=== PATIENT | male | born 1955 | race African-American/Black ===

== ENCOUNTER 2021-08-21 12:10 | Inpatient (IN) ==
[2021-08-21 15:55] LABS: Alanine Aminotransferase 20 U/L (16-61); Albumin 3.7 G/DL (3.4-5.0); Alkaline Phosphatase 65 U/L (45-117); Aspartate Amino Transferase 10 U/L (0-37); Bilirubin,Total < 0.39 MG/DL (0.20-1.00); Blood Urea Nitrogen 23 MG/DL (7-18); Calcium 8.4 MG/DL (8.5-10.1); Carbon Dioxide 28 MMOL/L (21-32); Estimated Glom Filtration Rate 41 ML/MIN; Glucose 114 MG/DL (74-106); Osmolality,Calculated 283.4 MOS/KG (273-304); Potassium 4.1 MMOL/L (3.5-5.1); Sodium 140 MMOL/L (136-145); Total Protein 8.3 G/DL (6.4-8.2)
[2021-08-21 17:34] LABS: ABG Base Excess -0.7 MMOL/L (-2.5-2.5); ABG HCO3 23.8 MMOL/L (20-26); ABG PCO2 41.4 MM HG (35-48); ABG PH 7.379 (7.35-7.45); ABG PO2 93.4 MM HG (80-95); ABG TCO2 21.2 MMOL/L (23-27); Allen Test Positive; Pt O2 Delivery Device Room Air
[2021-08-21 17:49] LABS: Basophils # 0.1 10*3/uL (0.0-0.2); Eosinophils # 0.2 10*3/uL (0.0-0.87); Eosinophils % 3.5 % (0.00-10.9); Hematocrit 39.8 VOL% (42.0-52.0); Hemoglobin 13.9 GM/DL (14.0-18.0); Immature Granulocytes % 0.2 %; Immature Granulocytes Absolute 0.01 #; Lymphocytes % 31.8 % (21.2-54.2); Mean Corpuscular HGB Conc 34.9 GM/DL (32-36); Mean Corpuscular Volume 80.4 FL (87-102); Monocytes % 7.7 % (1.7-12.7); Neutrophils % 55.8 % (38.7-73.9); Platelet Count 277 T/CUMM (130-400); Red Blood Count 4.95 MC/CUMM (3.8-5.5); White Blood Count 6.2 T/CUMM (4-12)
[2021-08-21] MEDS: CHLORHEXIDINE 0.12% ORAL RINSE 60 ML BOTTLE SWISH/SPIT SCH (21:17)
[2021-08-21] MEDS: CHLORHEXIDINE 4% SOLN 118 ML BOTTLE TOP SCH (21:17)
[2021-08-22] MEDS ORDERED: VANCOMYCIN 1,000 MG VIAL ONE (04:16)
[2021-08-22] MEDS ORDERED: CEFUROXIME INJ 1,500 MG in SODIUM CHLORIDE 0.9% 100 ML IV ONE (05:00)
[2021-08-22] MEDS: SODIUM CHLORIDE 0.9% 1,000 ML IV SCH ×3 (05:42→13:57)
[2021-08-22] MEDS ORDERED: FAMOTIDINE 20 MG TABLET PO ONE (05:45)
[2021-08-22] MEDS ORDERED: DIAZEPAM 5 MG TABLET PO ONE (05:45)
[2021-08-22] MEDS ORDERED: SODIUM CHLORIDE 0.9% 1,000 ML IV ONE ×2 (05:53→09:48)
[2021-08-22] MEDS ORDERED: LACTATED RINGERS 1,000 ML IV ONE (05:53)
[2021-08-22] MEDS ORDERED: SODIUM CHLORIDE 0.9% 250 ML IV ONE (05:53)
[2021-08-22] MEDS ORDERED: HEPARIN/NACL 0.9% 2 UNITS/ML 1,000 UNIT/500 ML BAG IV ONE (05:53)
[2021-08-22] MEDS ORDERED: MINERAL OIL/PETROLATUM OPH OINT 3.5 GM TUBE ONE (05:53)
[2021-08-22] MEDS ORDERED: AMINOCAPROIC ACID 5,000 MG/20 ML VIAL ONE (05:53)
[2021-08-22] MEDS ORDERED: LIDOCAINE 2% 5 ML VIAL ONE ×2 (05:58→09:42)
[2021-08-22] MEDS ORDERED: VECURONIUM 10 MG VIAL IV ONE ×3 (05:58→09:10)
[2021-08-22] MEDS ORDERED: CALCIUM CHLORIDE 1,000 MG/10 ML VIAL IV ONE ×4 (05:58→10:06)
[2021-08-22] MEDS ORDERED: SEVOFLURANE 1 UNIT/15 MINUTE INH ONE (05:58)
[2021-08-22] MEDS ORDERED: MIDAZOLAM 10 MG/2 ML VIAL ONE ×4 (05:59→09:11)
[2021-08-22] MEDS ORDERED: SUFentanil 250 MCG/5 ML AMP ONE (05:59)
[2021-08-22 07:28] LABS: ABG Base Excess -1.8 MMOL/L (-2.5-2.5); ABG HCO3 22.9 MMOL/L (20-26); ABG Oxygen Saturation 99.7 % (95-100); ABG PCO2 43.8 MM HG (35-48); ABG PH 7.346 (7.35-7.45); ABG TCO2 21.3 MMOL/L (23-27); Glucose Heart Surgery 98 MG/DL (74-106); Hematocrit Heart Surgery 37.1 PERCENT (42-52); Hemoglobin Heart Surgery 12.1 G/DL (14.0-18.0); Ionized Calcium Arterial 1.14 MMOL/L (1.21-1.46); PCO2 Patient Temp Arterial 43.8 MMHG; PH Patient Temp Arterial 7.346; Patient Temperature 37 CELCIUS; Potassium Heart/CVR 4.6 MMOL/L (3.5-5.1); Sodium Heart/CVR 141 MMOL/L (135-145)
[2021-08-22 07:41] LABS: Bilirubin,Urine Negative (Negative); Blood, Urine Negative (Negative); Glucose,Urine (UA) Negative (Negative); Hyaline Casts,Urine 8 /LPF (0-3); Ketones,Urine Negative (Negative); Mucus,Urine Occasional /LPF (Occasional); Nitrite,Urine Negative (Negative); Protein,Urine Negative; RBC,Urine 2 /HPF (0-4); Squamous Epithelial Cell,Urine Occasional /HPF (0-10); Urine Appearance CLEAR (Clear); Urine Color Yellow (Yellow); Urine Specific Gravity 1.015 (1.001-1.035); Urine Urobilinogen < 2.0 EU/DL (0.2-1.0)
[2021-08-22] MEDS ORDERED: SUCCINYLCHOLINE 200 MG/10 ML VIAL ONE (07:50)
[2021-08-22 08:40] LABS: Hemoglobin Heart Surgery 9.3 G/DL (14.0-18.0); PCO2 Patient Temp Venous 32.1 MM HG; PH Patient Temp Venous 7.477; PO2 Patient Temp Venous 40.4 MM HG; Potassium Heart/CVR 4.7 MMOL/L (3.5-5.1); VBG Base Excess -0.2 MEQ/L (0-4); VBG HCO3 23.6 MEQ/L (24-28); VBG Oxygen Saturation 83.6 %; VBG PH 7.447; VBG PO2 46.5 MMHG (17-40); VBG Total CO2 24.7 MMOL/L
[2021-08-22 09:11] LABS: Hemoglobin Heart Surgery 9.9 G/DL (14.0-18.0); PCO2 Patient Temp Venous 28.3 MM HG; PH Patient Temp Venous 7.516; PO2 Patient Temp Venous 38.6 MM HG; Potassium Heart/CVR 4.3 MMOL/L (3.5-5.1); VBG Base Excess -0.2 MEQ/L (0-4); VBG Oxygen Saturation 85.6 %; VBG PCO2 32.3 MMHG (41-51); VBG PH 7.471; VBG PO2 47.7 MMHG (17-40)
[2021-08-22] MEDS ORDERED: diphenhydrAMINE 50 MG/1 ML VIAL ONE (09:11)
[2021-08-22] MEDS ORDERED: SUFentanil 50 MCG/ML AMP ONE (09:25)
[2021-08-22] MEDS ORDERED: DEXTROSE 5% KCL 20 MEQ 20 MEQ/1,000 ML BAG IV ONE (09:42)
[2021-08-22] MEDS ORDERED: MANNITOL 100 GM/500 ML BAG IV ONE (09:42)
[2021-08-22] MEDS ORDERED: ALBUMIN 25% 25 GM/100 ML VIAL IV ONE (09:42)
[2021-08-22] MEDS ORDERED: methylPREDNISolone SOD SUC 1,000 MG/8 ML VIAL ONE (09:42)
[2021-08-22] MEDS ORDERED: MAGNESIUM SULFATE 5 GM/10 ML VIAL IV ONE (09:42)
[2021-08-22] MEDS ORDERED: FUROSEMIDE 20 MG/2 ML VIAL ONE (09:43)
[2021-08-22] MEDS ORDERED: SODIUM BICARBONATE 50 MEQ/50 ML VIAL IV ONE (09:43)
[2021-08-22] MEDS ORDERED: PROTAMINE SULFATE 250 MG/25 ML VIAL IV ONE (09:43)
[2021-08-22] MEDS ORDERED: HEPARIN 10,000 UNIT/10 ML VIAL ONE (09:43)
[2021-08-22 10:01] LABS: ABG Base Excess 0.5 MMOL/L (-2.5-2.5); ABG HCO3 24.9 MMOL/L (20-26); ABG PCO2 30.7 MM HG (35-48); ABG PH 7.489 (7.35-7.45); ABG TCO2 21.3 MMOL/L (23-27); Glucose Heart Surgery 177 MG/DL (74-106); Hematocrit Heart Surgery 28.7 PERCENT (42-52); Hemoglobin Heart Surgery 9.3 G/DL (14.0-18.0); Ionized Calcium Arterial 1.05 MMOL/L (1.21-1.46); PCO2 Patient Temp Arterial 30.7 MMHG; PH Patient Temp Arterial 7.489; Patient Temperature 37 CELCIUS; Potassium Heart/CVR 3.8 MMOL/L (3.5-5.1); Sodium Heart/CVR 137 MMOL/L (135-145)
[2021-08-22] MEDS ORDERED: PHENYLEPHRINE DRIP 40 MG/250 ML PREMIX IV ONE (10:30)
[2021-08-22] MEDS ORDERED: ONDANSETRON 4 MG/2 ML VIAL IV PRN (11:07)
[2021-08-22] MEDS ORDERED: CALCIUM CHLORIDE 1,000 MG/10 ML SYRINGE IV PRN (11:07)
[2021-08-22] MEDS ORDERED: VECURONIUM 10 MG VIAL IV PRN ×2 (11:07)
[2021-08-22] MEDS ORDERED: MIDAZOLAM 10 MG/2 ML VIAL IV PRN (11:07)
[2021-08-22] MEDS ORDERED: INSULIN REGULAR 100 UNIT/ML IV PRN (11:07)
[2021-08-22] MEDS ORDERED: MIDAZOLAM 2 MG/2 ML VIAL IV PRN (11:07)
[2021-08-22] MEDS ORDERED: INSULIN REGULAR 100 UNIT/ML IV ONE (11:07)
[2021-08-22] MEDS ORDERED: DEXTROSE 50% 25 GM/50 ML VIAL IV PRN ×2 (11:07)
[2021-08-22] MEDS ORDERED: LACTATED RINGERS 250 ML IV PRN (11:07)
[2021-08-22] MEDS ORDERED: MORPHINE 10 MG/1 ML VIAL IV PRN (11:07)
[2021-08-22] MEDS ORDERED: PHENYLEPHRINE DRIP 40 MG/250 ML PREMIX IV PRN (11:07)
[2021-08-22] MEDS ORDERED: NITROPRUSSIDE 100 MG in DEXTROSE 5% 250 ML IV PRN (11:07)
[2021-08-22] MEDS ORDERED: CHLORHEXIDINE 4% SOLN 118 ML BOTTLE TOP PRN (11:07)
[2021-08-22] MEDS ORDERED: ACETAMINOPHEN 650 MG SUPP RECTAL PRN (11:07)
[2021-08-22] MEDS ORDERED: POTASSIUM CHLORIDE RIDER 10 MEQ/100 ML PREMIX IV PRN (11:07)
[2021-08-22] MEDS ORDERED: MAGNESIUM SULF RIDER 4 GM/100 ML PREMIX IV PRN (11:07)
[2021-08-22 11:20] LABS: ABG HCO3 22.7 MMOL/L (20-26); ABG Oxygen Saturation 98.5 % (95-100); ABG PCO2 29.9 MM HG (35-48); ABG PH 7.498 (7.35-7.45); ABG PO2 327.8 MM HG (80-95); ABG TCO2 23.6 MMOL/L (23-27); Glucose Heart Surgery 139 MG/DL (74-106); Hemoglobin Heart Surgery 9.3 G/DL (14.0-18.0); Potassium Heart/CVR 3.3 MMOL/L (3.5-5.1)
[2021-08-22 11:21] LABS: Hematocrit 25.2 VOL% (42.0-52.0); Lymphocytes # 0.7 10*3/uL (1.4-4.0); Lymphocytes % 9.9 % (21.2-54.2); Mean Corpuscular HGB Conc 36.5 GM/DL (32-36); Mean Corpuscular Volume 78.8 FL (87-102)
[2021-08-22 11:25] LABS: Basophils % 0.3 % (0.0-0.8); Eosinophils # 0.1 10*3/uL (0.0-0.87); Immature Granulocytes % 0.6 %; Immature Granulocytes Absolute 0.04 #; Mean Platelet Volume 10.8 FL (9.6-12.0); Monocytes % 5.3 % (1.7-12.7); Neutrophils % 82.9 % (38.7-73.9); Red Cell Distribution Width 14.5 % (9.3-17.3); White Blood Count 6.8 T/CUMM (4-12)
[2021-08-22 11:26] LABS: Hemoglobin 9.2 GM/DL (14.0-18.0); Platelet Count 189 T/CUMM (130-400)
[2021-08-22 11:34] LABS: INR 1.3; PT Patient Result 13.9 SECS (10.5-12.0); Partial Thromboplastin Time 30.9 SECS (23.8-32.1)
[2021-08-22] MEDS: LACTATED RINGERS 1,000 ML IV PRN ×4 (11:38→21:35)
[2021-08-22 11:41] LABS: CKMB % 4.6 %
[2021-08-22 11:43] LABS: High Sensitive Troponin I* 5849.8 ng/L (0-78)
[2021-08-22] MEDS: SODIUM CHLORIDE 0.45% 1,000 ML IV SCH ×2 (11:44)
[2021-08-22 11:46] LABS: Albumin 3.1 G/DL (3.4-5.0); Bilirubin,Total 0.9 MG/DL (0.20-1.00); Calcium 9.3 MG/DL (8.5-10.1); Osmolality,Calculated 280.5 MOS/KG (273-304); Potassium 3.4 MMOL/L (3.5-5.1); Total Protein 6.3 G/DL (6.4-8.2)
[2021-08-22] MEDS: POTASSIUM CHLORIDE RIDER 20 MEQ/100 ML PREMIX IV PRN ×3 (11:50→15:32)
[2021-08-22] MEDS ORDERED: NITROPRUSSIDE 50 MG/2 ML VIAL ONE (12:07)
[2021-08-22] MEDS: MAGNESIUM SULF RIDER 2 GM/50 ML PREMIX IV PRN (12:26)
[2021-08-22] MEDS ORDERED: DEXMEDETOMIDINE 200 MCG in SODIUM CHLORIDE 0.9% 48 ML IV PRN (13:00)
[2021-08-22 13:06] LABS: ABG Base Excess -1.8 MMOL/L (-2.5-2.5); ABG HCO3 20.9 MMOL/L (20-26); ABG Oxygen Saturation 98.2 % (95-100); ABG PH 7.476 (7.35-7.45); ABG PO2 162.1 MM HG (80-95); ABG TCO2 21.8 MMOL/L (23-27); Glucose Heart Surgery 164 MG/DL (74-106); Hemoglobin Heart Surgery 10.5 G/DL (14.0-18.0); Potassium Heart/CVR 4.5 MMOL/L (3.5-5.1)
[2021-08-22] MEDS: ALBUMIN 5% 12.5 GM/250 ML VIAL IV PRN ×4 (13:54→23:17)
[2021-08-22 15:20] LABS: ABG Base Excess -2.1 MMOL/L (-2.5-2.5); ABG HCO3 22.7 MMOL/L (20-26); ABG Oxygen Saturation 98.7 % (95-100); ABG PCO2 38.6 MM HG (35-48); ABG PH 7.378 (7.35-7.45); ABG TCO2 20.7 MMOL/L (23-27); Glucose Heart Surgery 215 MG/DL (74-106); Hematocrit Heart Surgery 31.5 PERCENT (42-52); Hemoglobin Heart Surgery 10.2 G/DL (14.0-18.0)
[2021-08-22] MEDS: INSULIN REGULAR DRIP 100 ML IV SCH (15:26)
[2021-08-22] MEDS: CEFUROXIME INJ 1,500 MG in SODIUM CHLORIDE 0.9% 100 ML IV SCH (18:45)
[2021-08-22 18:47] LABS: ABG HCO3 23.6 MMOL/L (20-26); ABG Oxygen Saturation 98.9 % (95-100); ABG PCO2 36.5 MM HG (35-48); ABG PH 7.412 (7.35-7.45); ABG TCO2 21.3 MMOL/L (23-27); Glucose Heart Surgery 135 MG/DL (74-106); Hematocrit Heart Surgery 28.9 PERCENT (42-52); Hemoglobin Heart Surgery 9.3 G/DL (14.0-18.0)
[2021-08-22 22:07] LABS: CKMB % 2.9 %; High Sensitive Troponin I* 5215.1 ng/L (0-78)
[2021-08-22 23:16] LABS: ABG Base Excess -2.4 MMOL/L (-2.5-2.5); ABG HCO3 22.4 MMOL/L (20-26); ABG Oxygen Saturation 98.4 % (95-100); ABG PCO2 40.3 MM HG (35-48); ABG TCO2 21.2 MMOL/L (23-27); Glucose Heart Surgery 153 MG/DL (74-106); Hematocrit Heart Surgery 26.8 PERCENT (42-52); Hemoglobin Heart Surgery 8.6 G/DL (14.0-18.0); Potassium Heart/CVR 4.2 MMOL/L (3.5-5.1)
[2021-08-23] MEDS: LACTATED RINGERS 1,000 ML IV PRN (00:15)
[2021-08-23 03:01] LABS: ABG Base Excess -1.2 MMOL/L (-2.5-2.5); ABG HCO3 23.4 MMOL/L (20-26); ABG Oxygen Saturation 98.4 % (95-100); ABG PCO2 37.7 MM HG (35-48); ABG TCO2 21.7 MMOL/L (23-27); Glucose Heart Surgery 142 MG/DL (74-106); Hematocrit Heart Surgery 26.4 PERCENT (42-52); Hemoglobin Heart Surgery 8.5 G/DL (14.0-18.0); Potassium Heart/CVR 4.1 MMOL/L (3.5-5.1)
[2021-08-23 03:48] LABS: ABG HCO3 23.5 MMOL/L (20-26); ABG Oxygen Saturation 97.4 % (95-100); ABG PCO2 40.3 MM HG (35-48); ABG PH 7.381 (7.35-7.45); ABG PO2 98.7 MM HG (80-95); ABG TCO2 22.2 MMOL/L (23-27); Glucose Heart Surgery 149 MG/DL (74-106); Hematocrit Heart Surgery 26.9 PERCENT (42-52); Hemoglobin Heart Surgery 8.7 G/DL (14.0-18.0)
[2021-08-23 03:57] LABS: Hematocrit 23.9 VOL% (42.0-52.0); Hemoglobin 8.5 GM/DL (14.0-18.0); Immature Granulocytes % 0.3 %; Immature Granulocytes Absolute 0.02 #; Lymphocytes # 0.4 10*3/uL (1.4-4.0); Lymphocytes % 5.6 % (21.2-54.2); Mean Corpuscular HGB Conc 35.6 GM/DL (32-36); Mean Corpuscular Volume 80.7 FL (87-102); Mean Platelet Volume 11.1 FL (9.6-12.0); Monocytes % 5.5 % (1.7-12.7); Neutrophils % 88.6 % (38.7-73.9); Platelet Count 149 T/CUMM (130-400); Red Blood Count 2.96 MC/CUMM (3.8-5.5); Red Cell Distribution Width 15.1 % (9.3-17.3); White Blood Count 7.8 T/CUMM (4-12)
[2021-08-23 04:18] LABS: Albumin 3.4 G/DL (3.4-5.0); Bilirubin,Direct 0.19 MG/DL (0.0-0.20); Bilirubin,Total 0.5 MG/DL (0.20-1.00); Calcium 7.7 MG/DL (8.5-10.1); Osmolality,Calculated 288.8 MOS/KG (273-304); Total Protein 6.3 G/DL (6.4-8.2)
[2021-08-23] MEDS: CHLORHEXIDINE 0.12% ORAL RINSE 60 ML BOTTLE SWISH/SPIT SCH ×4 (04:20→21:16)
[2021-08-23 04:21] LABS: Band Neutrophils 1 % (0-10); Hypochromasia 1+; Lymphocytes 5 % (20-55); Microcytosis 1+; Platelet Estimate Normal; Segmented Neutrophils 89 % (50-85); Total Cells Counted 100
[2021-08-23 04:23] LABS: High Sensitive Troponin I* 7034.6 ng/L (0-78)
[2021-08-23 04:58] LABS: ABG Base Excess -0.8 MMOL/L (-2.5-2.5); ABG HCO3 23.7 MMOL/L (20-26); ABG Oxygen Saturation 94.4 % (95-100); ABG PCO2 38.9 MM HG (35-48); ABG PH 7.396 (7.35-7.45); ABG PO2 74.4 MM HG (80-95); ABG TCO2 22.2 MMOL/L (23-27); Glucose Heart Surgery 151 MG/DL (74-106); Hematocrit Heart Surgery 26.4 PERCENT (42-52); Hemoglobin Heart Surgery 8.5 G/DL (14.0-18.0)
[2021-08-23] MEDS: POTASSIUM CHLORIDE RIDER 20 MEQ/100 ML PREMIX IV PRN (05:17)
[2021-08-23] MEDS: CEFUROXIME INJ 1,500 MG in SODIUM CHLORIDE 0.9% 100 ML IV SCH ×2 (05:30→18:51)
[2021-08-23] MEDS ORDERED: oxyCODONE/ACETAMINOPHEN 5-325 MG TABLET PO PRN (06:17)
[2021-08-23] MEDS ORDERED: FUROSEMIDE 40 MG/4 ML VIAL IV ONE (07:00)
[2021-08-23] MEDS: ASPIRIN EC 81 MG TABLET PO SCH (09:31)
[2021-08-23] MEDS: CHLORHEXIDINE 4% SOLN 118 ML BOTTLE TOP SCH (10:14)
[2021-08-23 11:22] LABS: CKMB % 2.3 %
[2021-08-23 11:25] LABS: High Sensitive Troponin I* 7479.8 ng/L (0-78)
[2021-08-23] MEDS: SODIUM CHLORIDE 0.9% 1,000 ML IV SCH (14:45)
[2021-08-23] MEDS: SODIUM CHLORIDE 0.45% 1,000 ML IV SCH ×2 (14:46)
[2021-08-23] MEDS: INSULIN REGULAR DRIP 100 ML IV SCH (14:46)
[2021-08-23] MEDS: INSULIN REGULAR 100 UNIT/ML SUBCUT SCH ×2 (17:29→20:08)
[2021-08-23 18:26] LABS: CKMB % 1.6 %
[2021-08-23 18:32] LABS: High Sensitive Troponin I* 4926.2 ng/L (0-78)
[2021-08-23] MEDS: SIMVASTATIN 20 MG TABLET PO SCH (21:16)
[2021-08-24] MEDS: INSULIN REGULAR 100 UNIT/ML SUBCUT SCH ×6 (00:23→21:43)
[2021-08-24 04:35] LABS: Basophils % 0.1 % (0.0-0.8); Hematocrit 26.7 VOL% (42.0-52.0); Hemoglobin 9.3 GM/DL (14.0-18.0); Immature Granulocytes % 0.4 %; Immature Granulocytes Absolute 0.05 #; Lymphocytes # 1.1 10*3/uL (1.4-4.0); Lymphocytes % 8.4 % (21.2-54.2); Mean Corpuscular HGB Conc 34.8 GM/DL (32-36); Mean Corpuscular Volume 82.4 FL (87-102); Mean Platelet Volume 12.3 FL (9.6-12.0); Monocytes % 11.4 % (1.7-12.7); Neutrophils % 79.7 % (38.7-73.9); Platelet Count 142 T/CUMM (130-400); Red Blood Count 3.24 MC/CUMM (3.8-5.5); Red Cell Distribution Width 15.6 % (9.3-17.3); White Blood Count 12.4 T/CUMM (4-12)
[2021-08-24 04:55] LABS: Albumin 3.2 G/DL (3.4-5.0); Bilirubin,Direct 0.13 MG/DL (0.0-0.20); Bilirubin,Total 0.4 MG/DL (0.20-1.00); Calcium 7.7 MG/DL (8.5-10.1); Potassium 3.9 MMOL/L (3.5-5.1); Total Protein 6.1 G/DL (6.4-8.2)
[2021-08-24] MEDS: POTASSIUM CHLORIDE RIDER 20 MEQ/100 ML PREMIX IV PRN ×2 (04:59→05:38)
[2021-08-24 05:08] LABS: Band Neutrophils 2 % (0-10); Hypochromasia Slight; Lymphocytes 7 % (20-55); Microcytosis Slight; Platelet Estimate Normal; Segmented Neutrophils 83 % (50-85); Total Cells Counted 100
[2021-08-24] MEDS: MAGNESIUM SULF RIDER 2 GM/50 ML PREMIX IV PRN (06:08)
[2021-08-24] MEDS: FUROSEMIDE 40 MG/4 ML VIAL IV SCH ×2 (08:52→17:06)
[2021-08-24] MEDS: ASPIRIN EC 81 MG TABLET PO SCH (08:53)
[2021-08-24] MEDS: CHLORHEXIDINE 0.12% ORAL RINSE 60 ML BOTTLE SWISH/SPIT SCH ×2 (08:53→21:43)
[2021-08-24] MEDS ORDERED: MAGNESIUM HYDROXIDE SUSP 30 ML UDCUP PO PRN (11:56)
[2021-08-24] MEDS ORDERED: MAGNESIUM SULF RIDER 2 GM/50 ML PREMIX IV PRN (11:56)
[2021-08-24] MEDS ORDERED: ALUMINUM/MAGNES/SIMETH MAX STR 30 ML UDCUP PO PRN (11:56)
[2021-08-24] MEDS ORDERED: ONDANSETRON 4 MG/2 ML VIAL IV PRN (11:56)
[2021-08-24] MEDS ORDERED: GLUCAGON 1 MG VIAL IM PRN (11:56)
[2021-08-24] MEDS ORDERED: MAGNESIUM SULF RIDER 4 GM/100 ML PREMIX IV PRN (11:56)
[2021-08-24] MEDS ORDERED: ACETAMINOPHEN 325 MG TABLET PO PRN (11:56)
[2021-08-24] MEDS ORDERED: DEXTROSE 50% 25 GM/50 ML VIAL IV PRN (11:56)
[2021-08-24] MEDS: ALBUTEROL/IPRATROPIUM 3 ML NEB RESP TX SCH (13:37)
[2021-08-24] MEDS ORDERED: AMIODARONE INJ 150 MG in DEXTROSE 5% 100 ML IV ONE (16:28)
[2021-08-24] MEDS ORDERED: AMIODARONE INJ 450 MG in DEXTROSE 5% 241 ML IV SCH (16:30)
[2021-08-24] MEDS ORDERED: AMIODARONE 150 MG/3 ML VIAL ONE (16:33)
[2021-08-24] MEDS ORDERED: DILTIAZEM 50 MG/10 ML VIAL IV ONE (17:26)
[2021-08-24] MEDS: DILTIAZEM INJ 100 MG in SODIUM CHLORIDE 0.9% 100 ML IV SCH (17:45)
[2021-08-24] MEDS: SIMVASTATIN 20 MG TABLET PO SCH (21:42)
[2021-08-24] MEDS: AMIODARONE INJ 450 MG in DEXTROSE 5% 241 ML IV SCH (23:59)
[2021-08-25] MEDS: ALBUTEROL/IPRATROPIUM 3 ML NEB RESP TX SCH ×6 (00:05→19:44)
[2021-08-25] MEDS: DILTIAZEM INJ 100 MG in SODIUM CHLORIDE 0.9% 100 ML IV SCH ×3 (00:17→19:38)
[2021-08-25] MEDS: INSULIN REGULAR 100 UNIT/ML SUBCUT SCH ×7 (02:23→23:45)
[2021-08-25 04:28] LABS: Basophils % 0.2 % (0.0-0.8); Hematocrit 29.8 VOL% (42.0-52.0); Hemoglobin 10.7 GM/DL (14.0-18.0); Immature Granulocytes % 0.6 %; Immature Granulocytes Absolute 0.09 #; Lymphocytes # 1.4 10*3/uL (1.4-4.0); Lymphocytes % 9.6 % (21.2-54.2); Mean Corpuscular HGB Conc 35.9 GM/DL (32-36); Mean Corpuscular Volume 81.4 FL (87-102); Mean Platelet Volume 12.4 FL (9.6-12.0); Monocytes % 10.3 % (1.7-12.7); NRBC # 0.05 10*3/uL; Neutrophils % 79.3 % (38.7-73.9); Platelet Count 144 T/CUMM (130-400); Red Blood Count 3.66 MC/CUMM (3.8-5.5); Red Cell Distribution Width 15.7 % (9.3-17.3); White Blood Count 14.8 T/CUMM (4-12)
[2021-08-25 04:53] LABS: Alanine Aminotransferase 29 U/L (16-61); Albumin 3.1 G/DL (3.4-5.0); Alkaline Phosphatase 52 U/L (45-117); Aspartate Amino Transferase 22 U/L (0-37); Bilirubin,Indirect 0.4 MG/DL (0.0-1.0); Blood Urea Nitrogen 22 MG/DL (7-18); Calcium 8.2 MG/DL (8.5-10.1); Carbon Dioxide 31 MMOL/L (21-32); Estimated Glom Filtration Rate 60 ML/MIN; Glucose 147 MG/DL (74-106); Osmolality,Calculated 288.1 MOS/KG (273-304); Potassium 3.4 MMOL/L (3.5-5.1); Sodium 142 MMOL/L (136-145)
[2021-08-25] MEDS: FERROUS SULFATE 325 MG TABLET PO SCH (08:37)
[2021-08-25] MEDS: ASPIRIN EC 81 MG TABLET PO SCH (08:37)
[2021-08-25] MEDS: PANTOPRAZOLE 40 MG TABLET PO SCH (08:37)
[2021-08-25] MEDS: POLYETHYLENE GLYCOL POWDER 17 GM PACK PO SCH (08:38)
[2021-08-25] MEDS: DOCUSATE SODIUM 100 MG CAPSULE PO SCH (08:38)
[2021-08-25] MEDS: CHLORHEXIDINE 0.12% ORAL RINSE 60 ML BOTTLE SWISH/SPIT SCH ×2 (08:39→21:02)
[2021-08-25] MEDS: FUROSEMIDE 40 MG/4 ML VIAL IV SCH ×2 (08:40→16:25)
[2021-08-25] MEDS: POTASSIUM CHLORIDE 20 MEQ TABLET PO PRN ×3 (10:53→14:17)
[2021-08-25] MEDS: AMIODARONE INJ 450 MG in DEXTROSE 5% 241 ML IV SCH (16:20)
[2021-08-25] MEDS: SIMVASTATIN 20 MG TABLET PO SCH (21:02)
[2021-08-26] MEDS: ALBUTEROL/IPRATROPIUM 3 ML NEB RESP TX SCH ×4 (01:05→20:13)
[2021-08-26] MEDS: INSULIN REGULAR 100 UNIT/ML SUBCUT SCH ×5 (03:07→20:26)
[2021-08-26 05:20] LABS: Basophils % 0.2 % (0.0-0.8); Eosinophils # 0.1 10*3/uL (0.0-0.87); Eosinophils % 0.4 % (0.00-10.9); Hematocrit 28.4 VOL% (42.0-52.0); Hemoglobin 10.2 GM/DL (14.0-18.0); Immature Granulocytes % 2.5 %; Immature Granulocytes Absolute 0.35 #; Lymphocytes # 1.6 10*3/uL (1.4-4.0); Lymphocytes % 11.8 % (21.2-54.2); Mean Corpuscular HGB Conc 35.9 GM/DL (32-36); Mean Corpuscular Volume 82.6 FL (87-102); Mean Platelet Volume 13.2 FL (9.6-12.0); Monocytes % 9.1 % (1.7-12.7); NRBC # 0.16 10*3/uL; Platelet Count 154 T/CUMM (130-400); Red Blood Count 3.44 MC/CUMM (3.8-5.5); Red Cell Distribution Width 15.8 % (9.3-17.3); White Blood Count 13.9 T/CUMM (4-12)
[2021-08-26] MEDS: DILTIAZEM INJ 100 MG in SODIUM CHLORIDE 0.9% 100 ML IV SCH ×2 (05:26→15:53)
[2021-08-26] MEDS: AMIODARONE INJ 450 MG in DEXTROSE 5% 241 ML IV SCH ×3 (05:36→23:50)
[2021-08-26 05:55] LABS: Alanine Aminotransferase 29 U/L (16-61); Alkaline Phosphatase 56 U/L (45-117); Aspartate Amino Transferase 20 U/L (0-37); Band Neutrophils 12 % (0-10); Bilirubin,Indirect 0.4 MG/DL (0.0-1.0); Blood Urea Nitrogen 18 MG/DL (7-18); Calcium 7.9 MG/DL (8.5-10.1); Carbon Dioxide 30 MMOL/L (21-32); Estimated Glom Filtration Rate 59 ML/MIN; Glucose 141 MG/DL (74-106); Lymphocytes 11 % (20-55); Nucleated Red Blood Cells 1 (0-5); Osmolality,Calculated 282.4 MOS/KG (273-304); Platelet Estimate Normal; Potassium 3.3 MMOL/L (3.5-5.1); Segmented Neutrophils 70 % (50-85); Sodium 140 MMOL/L (136-145); Target Cells 1+; Total Cells Counted 100; Total Protein 6.9 G/DL (6.4-8.2)
[2021-08-26 05:56] LABS: Anisocytosis 1+; Macrocytosis Slight
[2021-08-26 05:57] LABS: Smudge Cells Few
[2021-08-26] MEDS: POTASSIUM CHLORIDE 20 MEQ TABLET PO PRN ×3 (08:36→14:48)
[2021-08-26] MEDS: FERROUS SULFATE 325 MG TABLET PO SCH (08:36)
[2021-08-26] MEDS: PANTOPRAZOLE 40 MG TABLET PO SCH (08:36)
[2021-08-26] MEDS: ASPIRIN EC 81 MG TABLET PO SCH (08:36)
[2021-08-26] MEDS: POLYETHYLENE GLYCOL POWDER 17 GM PACK PO SCH (08:36)
[2021-08-26] MEDS: DOCUSATE SODIUM 100 MG CAPSULE PO SCH (08:36)
[2021-08-26] MEDS: CHLORHEXIDINE 0.12% ORAL RINSE 60 ML BOTTLE SWISH/SPIT SCH ×2 (08:42→20:25)
[2021-08-26] MEDS: FUROSEMIDE 40 MG/4 ML VIAL IV SCH ×2 (08:42→15:52)
[2021-08-26] MEDS ORDERED: LACTULOSE 20 GM/30 ML UDCUP PO PRN (09:12)
[2021-08-26] MEDS: AMIODARONE 200 MG TABLET PO SCH ×2 (09:47→20:26)
[2021-08-26] MEDS: DILTIAZEM 30 MG TABLET PO SCH ×2 (09:48→20:25)
[2021-08-26] MEDS: SIMVASTATIN 20 MG TABLET PO SCH (20:25)
[2021-08-27] MEDS: ALBUTEROL/IPRATROPIUM 3 ML NEB RESP TX SCH ×4 (00:26→18:24)
[2021-08-27] MEDS: DILTIAZEM INJ 100 MG in SODIUM CHLORIDE 0.9% 100 ML IV SCH (01:36)
[2021-08-27 06:23] LABS: Basophils # 0.1 10*3/uL (0.0-0.2); Basophils % 0.4 % (0.0-0.8); Eosinophils # 0.2 10*3/uL (0.0-0.87); Eosinophils % 1.8 % (0.00-10.9); Hematocrit 28.4 VOL% (42.0-52.0); Hemoglobin 9.7 GM/DL (14.0-18.0); Immature Granulocytes % 1.3 %; Immature Granulocytes Absolute 0.16 #; Lymphocytes # 2.1 10*3/uL (1.4-4.0); Lymphocytes % 17.4 % (21.2-54.2); Mean Corpuscular HGB Conc 34.2 GM/DL (32-36); Mean Platelet Volume 12.7 FL (9.6-12.0); NRBC # 0.21 10*3/uL; Neutrophils % 69.1 % (38.7-73.9); Platelet Count 181 T/CUMM (130-400); Red Blood Count 3.42 MC/CUMM (3.8-5.5); Red Cell Distribution Width 15.8 % (9.3-17.3); White Blood Count 12.3 T/CUMM (4-12)
[2021-08-27 06:49] LABS: Platelet Estimate Normal
[2021-08-27 06:50] LABS: Anisocytosis 1+; Macrocytosis Slight; Polychromasia Slight; Target Cells 1+
[2021-08-27 07:17] LABS: Bilirubin,Direct 0.14 MG/DL (0.0-0.20); Bilirubin,Indirect 0.8 MG/DL (0.0-1.0); Bilirubin,Total 0.9 MG/DL (0.20-1.00); Calcium 7.9 MG/DL (8.5-10.1); Osmolality,Calculated 282.4 MOS/KG (273-304); Potassium 3.3 MMOL/L (3.5-5.1); Total Protein 6.9 G/DL (6.4-8.2)
[2021-08-27] MEDS: INSULIN REGULAR 100 UNIT/ML SUBCUT SCH ×4 (09:04→20:49)
[2021-08-27] MEDS: FUROSEMIDE 40 MG/4 ML VIAL IV SCH ×2 (09:05→17:04)
[2021-08-27] MEDS: PANTOPRAZOLE 40 MG TABLET PO SCH (09:06)
[2021-08-27] MEDS: DILTIAZEM 30 MG TABLET PO SCH ×2 (09:06→21:31)
[2021-08-27] MEDS: DOCUSATE SODIUM 100 MG CAPSULE PO SCH (09:06)
[2021-08-27] MEDS: ASPIRIN EC 81 MG TABLET PO SCH (09:06)
[2021-08-27] MEDS: FERROUS SULFATE 325 MG TABLET PO SCH (09:06)
[2021-08-27] MEDS: AMIODARONE 200 MG TABLET PO SCH ×2 (09:06→21:31)
[2021-08-27] MEDS: CHLORHEXIDINE 0.12% ORAL RINSE 60 ML BOTTLE SWISH/SPIT SCH ×2 (09:07→21:32)
[2021-08-27] MEDS: POLYETHYLENE GLYCOL POWDER 17 GM PACK PO SCH (09:13)
[2021-08-27] MEDS: POTASSIUM CHLORIDE 20 MEQ TABLET PO PRN ×3 (11:43→17:27)
[2021-08-27] MEDS: AMIODARONE INJ 450 MG in DEXTROSE 5% 241 ML IV SCH (15:02)
[2021-08-27] MEDS: ZALEPLON 5 MG CAPSULE PO PRN (21:31)
[2021-08-27] MEDS: SIMVASTATIN 20 MG TABLET PO SCH (21:32)
[2021-08-28] MEDS: ALBUTEROL/IPRATROPIUM 3 ML NEB RESP TX SCH ×4 (00:38→20:07)
[2021-08-28 06:26] LABS: Basophils % 0.3 % (0.0-0.8); Eosinophils # 0.3 10*3/uL (0.0-0.87); Eosinophils % 2.6 % (0.00-10.9); Hematocrit 27.9 VOL% (42.0-52.0); Hemoglobin 9.9 GM/DL (14.0-18.0); Immature Granulocytes % 1.6 %; Immature Granulocytes Absolute 0.19 #; Lymphocytes # 2.6 10*3/uL (1.4-4.0); Lymphocytes % 21.7 % (21.2-54.2); Mean Corpuscular HGB Conc 35.5 GM/DL (32-36); Mean Platelet Volume 12.1 FL (9.6-12.0); Monocytes % 7.8 % (1.7-12.7); NRBC # 0.09 10*3/uL; Platelet Count 167 T/CUMM (130-400); Red Blood Count 3.36 MC/CUMM (3.8-5.5); Red Cell Distribution Width 15.5 % (9.3-17.3); White Blood Count 11.8 T/CUMM (4-12)
[2021-08-28 06:52] LABS: Platelet Estimate Normal
[2021-08-28 06:53] LABS: Anisocytosis 1+; Basophilic Stippling Slight; Macrocytosis Slight; Polychromasia Slight; Target Cells 1+
[2021-08-28 06:55] LABS: Alanine Aminotransferase 25 U/L (16-61); Albumin 2.9 G/DL (3.4-5.0); Alkaline Phosphatase 55 U/L (45-117); Aspartate Amino Transferase 14 U/L (0-37); Bilirubin,Indirect 1.6 MG/DL (0.0-1.0); Blood Urea Nitrogen 18 MG/DL (7-18); Calcium 7.6 MG/DL (8.5-10.1); Carbon Dioxide 31 MMOL/L (21-32); Estimated Glom Filtration Rate 54 ML/MIN; Glucose 108 MG/DL (74-106); Osmolality,Calculated 272.1 MOS/KG (273-304); Potassium 3.1 MMOL/L (3.5-5.1); Sodium 135 MMOL/L (136-145); Total Protein 6.9 G/DL (6.4-8.2)
[2021-08-28] MEDS: DILTIAZEM 30 MG TABLET PO SCH ×2 (08:39→20:44)
[2021-08-28] MEDS: AMIODARONE 200 MG TABLET PO SCH ×2 (08:39→20:44)
[2021-08-28] MEDS: DOCUSATE SODIUM 100 MG CAPSULE PO SCH (08:41)
[2021-08-28] MEDS: ASPIRIN EC 81 MG TABLET PO SCH (08:41)
[2021-08-28] MEDS: PANTOPRAZOLE 40 MG TABLET PO SCH (08:42)
[2021-08-28] MEDS: FERROUS SULFATE 325 MG TABLET PO SCH (08:42)
[2021-08-28] MEDS: CHLORHEXIDINE 0.12% ORAL RINSE 60 ML BOTTLE SWISH/SPIT SCH ×2 (08:46→20:45)
[2021-08-28] MEDS: POLYETHYLENE GLYCOL POWDER 17 GM PACK PO SCH (08:46)
[2021-08-28] MEDS: FUROSEMIDE 40 MG/4 ML VIAL IV SCH ×2 (08:53→16:46)
[2021-08-28] MEDS: INSULIN REGULAR 100 UNIT/ML SUBCUT SCH ×4 (09:11→20:43)
[2021-08-28] MEDS: POTASSIUM CHLORIDE 20 MEQ TABLET PO PRN ×3 (09:27→14:37)
[2021-08-28] MEDS: ZALEPLON 5 MG CAPSULE PO PRN (20:44)
[2021-08-28] MEDS: SIMVASTATIN 20 MG TABLET PO SCH (20:45)
[2021-08-29] MEDS: ALBUTEROL/IPRATROPIUM 3 ML NEB RESP TX SCH ×4 (00:48→19:59)
[2021-08-29 06:18] LABS: Basophils % 0.2 % (0.0-0.8); Eosinophils # 0.3 10*3/uL (0.0-0.87); Eosinophils % 2.3 % (0.00-10.9); Hematocrit 29.3 VOL% (42.0-52.0); Hemoglobin 10.2 GM/DL (14.0-18.0); Immature Granulocytes % 1.5 %; Immature Granulocytes Absolute 0.18 #; Lymphocytes # 2.2 10*3/uL (1.4-4.0); Lymphocytes % 17.9 % (21.2-54.2); Mean Corpuscular HGB Conc 34.8 GM/DL (32-36); Mean Corpuscular Volume 81.8 FL (87-102); Mean Platelet Volume 11.9 FL (9.6-12.0); Monocytes % 8.2 % (1.7-12.7); NRBC # 0.05 10*3/uL; Neutrophils % 69.9 % (38.7-73.9); Platelet Count 229 T/CUMM (130-400); Red Blood Count 3.58 MC/CUMM (3.8-5.5); Red Cell Distribution Width 15.6 % (9.3-17.3); White Blood Count 12.3 T/CUMM (4-12)
[2021-08-29 06:36] LABS: Hypochromasia 1+
[2021-08-29 06:37] LABS: Microcytosis 1+; Platelet Estimate Normal; Polychromasia Slight; Target Cells Few
[2021-08-29 06:50] LABS: Alanine Aminotransferase 22 U/L (16-61); Albumin 2.9 G/DL (3.4-5.0); Alkaline Phosphatase 54 U/L (45-117); Aspartate Amino Transferase 14 U/L (0-37); Bilirubin,Indirect 0.4 MG/DL (0.0-1.0); Blood Urea Nitrogen 16 MG/DL (7-18); Calcium 7.2 MG/DL (8.5-10.1); Carbon Dioxide 30 MMOL/L (21-32); Estimated Glom Filtration Rate 54 ML/MIN; Glucose 114 MG/DL (74-106); Osmolality,Calculated 276.7 MOS/KG (273-304); Potassium 3.3 MMOL/L (3.5-5.1); Sodium 138 MMOL/L (136-145)
[2021-08-29] MEDS: DOCUSATE SODIUM 100 MG CAPSULE PO SCH (10:20)
[2021-08-29] MEDS: PANTOPRAZOLE 40 MG TABLET PO SCH (10:21)
[2021-08-29] MEDS: DILTIAZEM 30 MG TABLET PO SCH (10:21)
[2021-08-29] MEDS: POTASSIUM CHLORIDE 20 MEQ TABLET PO PRN (10:21)
[2021-08-29] MEDS: APIXABAN 5 MG TABLET PO SCH ×2 (10:21→20:38)
[2021-08-29] MEDS: FERROUS SULFATE 325 MG TABLET PO SCH (10:21)
[2021-08-29] MEDS: AMIODARONE 200 MG TABLET PO SCH ×2 (10:21→20:38)
[2021-08-29] MEDS: ASPIRIN EC 81 MG TABLET PO SCH (10:22)
[2021-08-29] MEDS: CHLORHEXIDINE 0.12% ORAL RINSE 60 ML BOTTLE SWISH/SPIT SCH ×2 (10:23→20:39)
[2021-08-29] MEDS: POLYETHYLENE GLYCOL POWDER 17 GM PACK PO SCH (10:23)
[2021-08-29] MEDS: INSULIN REGULAR 100 UNIT/ML SUBCUT SCH ×4 (10:23→20:39)
[2021-08-29] MEDS: FUROSEMIDE 40 MG/4 ML VIAL IV SCH ×2 (11:00→16:54)
[2021-08-29] MEDS ORDERED: AMIODARONE INJ 100 MG in DEXTROSE 5% 100 ML IV ONE ×3 (18:26→23:54)
[2021-08-29] MEDS ORDERED: DILTIAZEM 50 MG/10 ML VIAL IV ONE (18:29)
[2021-08-29] MEDS: DILTIAZEM INJ 100 MG in SODIUM CHLORIDE 0.9% 100 ML IV SCH (18:48)
[2021-08-29] MEDS: SIMVASTATIN 20 MG TABLET PO SCH (20:38)
[2021-08-29] MEDS ORDERED: SODIUM CHLORIDE 0.9% 500 ML IV ONE (23:53)
[2021-08-30] MEDS: SODIUM CHLORIDE 0.9% 1,000 ML IV SCH ×3 (00:40→19:58)
[2021-08-30] MEDS: ALBUTEROL/IPRATROPIUM 3 ML NEB RESP TX SCH ×4 (01:03→19:50)
[2021-08-30] MEDS: DILTIAZEM INJ 100 MG in SODIUM CHLORIDE 0.9% 100 ML IV SCH (05:09)
[2021-08-30] MEDS: INSULIN REGULAR 100 UNIT/ML SUBCUT SCH ×4 (08:12→20:24)
[2021-08-30] MEDS: DOCUSATE SODIUM 100 MG CAPSULE PO SCH (08:24)
[2021-08-30] MEDS: FERROUS SULFATE 325 MG TABLET PO SCH (08:24)
[2021-08-30] MEDS: AMIODARONE 200 MG TABLET PO SCH ×2 (08:24→20:21)
[2021-08-30] MEDS: DILTIAZEM CD 120 MG CAPSULE PO SCH (08:24)
[2021-08-30] MEDS: PANTOPRAZOLE 40 MG TABLET PO SCH (08:24)
[2021-08-30] MEDS: APIXABAN 5 MG TABLET PO SCH ×2 (08:24→20:21)
[2021-08-30] MEDS: ASPIRIN EC 81 MG TABLET PO SCH (08:25)
[2021-08-30] MEDS: METOPROLOL TARTRATE 25 MG TABLET PO SCH ×2 (08:25→20:21)
[2021-08-30] MEDS: FUROSEMIDE 40 MG/4 ML VIAL IV SCH ×2 (08:25→17:45)
[2021-08-30] MEDS: CHLORHEXIDINE 0.12% ORAL RINSE 60 ML BOTTLE SWISH/SPIT SCH ×2 (08:27→20:21)
[2021-08-30] MEDS: POLYETHYLENE GLYCOL POWDER 17 GM PACK PO SCH (08:27)
[2021-08-30] MEDS: SIMVASTATIN 20 MG TABLET PO SCH (20:21)
[2021-08-31] MEDS: ALBUTEROL/IPRATROPIUM 3 ML NEB RESP TX SCH ×4 (01:51→18:15)
[2021-08-31] MEDS: SODIUM CHLORIDE 0.9% 1,000 ML IV SCH ×2 (05:41→17:20)
[2021-08-31] MEDS: DOCUSATE SODIUM 100 MG CAPSULE PO SCH (08:29)
[2021-08-31] MEDS: DILTIAZEM CD 120 MG CAPSULE PO SCH (08:30)
[2021-08-31] MEDS: METOPROLOL TARTRATE 25 MG TABLET PO SCH ×2 (08:30→21:48)
[2021-08-31] MEDS: APIXABAN 5 MG TABLET PO SCH ×2 (08:30→21:48)
[2021-08-31] MEDS: AMIODARONE 200 MG TABLET PO SCH ×2 (08:30→21:48)
[2021-08-31] MEDS: ASPIRIN EC 81 MG TABLET PO SCH (08:30)
[2021-08-31] MEDS: INSULIN REGULAR 100 UNIT/ML SUBCUT SCH ×4 (08:31→21:55)
[2021-08-31] MEDS: FUROSEMIDE 40 MG/4 ML VIAL IV SCH ×2 (08:32→17:15)
[2021-08-31] MEDS: FERROUS SULFATE 325 MG TABLET PO SCH (08:37)
[2021-08-31] MEDS: CHLORHEXIDINE 0.12% ORAL RINSE 60 ML BOTTLE SWISH/SPIT SCH ×2 (08:37→21:49)
[2021-08-31] MEDS: PANTOPRAZOLE 40 MG TABLET PO SCH (08:37)
[2021-08-31] MEDS: POLYETHYLENE GLYCOL POWDER 17 GM PACK PO SCH (08:37)
[2021-08-31] MEDS: SIMVASTATIN 20 MG TABLET PO SCH (21:48)
[2021-09-01] MEDS: ALBUTEROL/IPRATROPIUM 3 ML NEB RESP TX SCH ×4 (01:50→18:00)
[2021-09-01] MEDS: SODIUM CHLORIDE 0.9% 1,000 ML IV SCH ×3 (03:32→22:06)
[2021-09-01] MEDS: INSULIN REGULAR 100 UNIT/ML SUBCUT SCH ×4 (10:55→22:57)
[2021-09-01] MEDS: APIXABAN 5 MG TABLET PO SCH ×2 (10:56→20:20)
[2021-09-01] MEDS: AMIODARONE 200 MG TABLET PO SCH ×2 (10:56→20:21)
[2021-09-01] MEDS: DILTIAZEM CD 120 MG CAPSULE PO SCH (10:56)
[2021-09-01] MEDS: DOCUSATE SODIUM 100 MG CAPSULE PO SCH (10:56)
[2021-09-01] MEDS: FERROUS SULFATE 325 MG TABLET PO SCH (10:56)
[2021-09-01] MEDS: ASPIRIN EC 81 MG TABLET PO SCH (10:57)
[2021-09-01] MEDS: PANTOPRAZOLE 40 MG TABLET PO SCH (10:57)
[2021-09-01] MEDS: METOPROLOL TARTRATE 25 MG TABLET PO SCH ×2 (10:57→20:20)
[2021-09-01] MEDS: POLYETHYLENE GLYCOL POWDER 17 GM PACK PO SCH (10:58)
[2021-09-01] MEDS: CHLORHEXIDINE 0.12% ORAL RINSE 60 ML BOTTLE SWISH/SPIT SCH ×2 (11:04→20:21)
[2021-09-01] MEDS: FUROSEMIDE 40 MG/4 ML VIAL IV SCH ×2 (11:06→18:32)
[2021-09-01] MEDS: SIMVASTATIN 20 MG TABLET PO SCH (20:21)
[2021-09-02] MEDS: ALBUTEROL/IPRATROPIUM 3 ML NEB RESP TX SCH ×4 (01:45→19:10)
[2021-09-02] MEDS: SODIUM CHLORIDE 0.9% 1,000 ML IV SCH ×2 (11:08→17:50)
[2021-09-02] MEDS: INSULIN REGULAR 100 UNIT/ML SUBCUT SCH ×4 (11:08→22:25)
[2021-09-02] MEDS: FERROUS SULFATE 325 MG TABLET PO SCH (11:09)
[2021-09-02] MEDS: AMIODARONE 200 MG TABLET PO SCH ×2 (11:09→20:52)
[2021-09-02] MEDS: APIXABAN 5 MG TABLET PO SCH ×2 (11:10→20:52)
[2021-09-02] MEDS: DILTIAZEM CD 120 MG CAPSULE PO SCH (11:10)
[2021-09-02] MEDS: DOCUSATE SODIUM 100 MG CAPSULE PO SCH (11:10)
[2021-09-02] MEDS: PANTOPRAZOLE 40 MG TABLET PO SCH (11:10)
[2021-09-02] MEDS: METOPROLOL TARTRATE 25 MG TABLET PO SCH ×2 (11:10→20:52)
[2021-09-02] MEDS: ASPIRIN EC 81 MG TABLET PO SCH (11:11)
[2021-09-02] MEDS: CHLORHEXIDINE 0.12% ORAL RINSE 60 ML BOTTLE SWISH/SPIT SCH ×2 (11:15→20:52)
[2021-09-02] MEDS: FUROSEMIDE 40 MG/4 ML VIAL IV SCH ×2 (11:15→17:30)
[2021-09-02] MEDS: POLYETHYLENE GLYCOL POWDER 17 GM PACK PO SCH (11:15)
[2021-09-02] MEDS: SIMVASTATIN 20 MG TABLET PO SCH (20:52)
[2021-09-03] MEDS: ALBUTEROL/IPRATROPIUM 3 ML NEB RESP TX SCH ×4 (00:15→20:14)
[2021-09-03] MEDS: SODIUM CHLORIDE 0.9% 1,000 ML IV SCH ×2 (03:09→15:17)
[2021-09-03] MEDS: PANTOPRAZOLE 40 MG TABLET PO SCH (08:30)
[2021-09-03] MEDS: FERROUS SULFATE 325 MG TABLET PO SCH (08:30)
[2021-09-03] MEDS: METOPROLOL TARTRATE 25 MG TABLET PO SCH ×3 (08:30→20:39)
[2021-09-03] MEDS: DILTIAZEM CD 120 MG CAPSULE PO SCH (08:30)
[2021-09-03] MEDS: APIXABAN 5 MG TABLET PO SCH ×2 (08:30→20:39)
[2021-09-03] MEDS: DOCUSATE SODIUM 100 MG CAPSULE PO SCH (08:31)
[2021-09-03] MEDS: POLYETHYLENE GLYCOL POWDER 17 GM PACK PO SCH (08:31)
[2021-09-03] MEDS: ASPIRIN EC 81 MG TABLET PO SCH (08:31)
[2021-09-03] MEDS: CHLORHEXIDINE 0.12% ORAL RINSE 60 ML BOTTLE SWISH/SPIT SCH ×2 (08:31→21:23)
[2021-09-03] MEDS: FUROSEMIDE 40 MG/4 ML VIAL IV SCH (08:31)
[2021-09-03] MEDS: AMIODARONE 200 MG TABLET PO SCH ×2 (09:34→20:38)
[2021-09-03] MEDS: FUROSEMIDE 40 MG TABLET PO SCH (09:43)
[2021-09-03] MEDS: INSULIN REGULAR 100 UNIT/ML SUBCUT SCH ×5 (09:43→21:23)
[2021-09-03] MEDS: SIMVASTATIN 20 MG TABLET PO SCH (20:39)
[2021-09-04] MEDS: SODIUM CHLORIDE 0.9% 1,000 ML IV SCH ×2 (01:15→10:18)
[2021-09-04] MEDS: ALBUTEROL/IPRATROPIUM 3 ML NEB RESP TX SCH ×3 (01:40→13:46)
[2021-09-04 06:39] LABS: Basophils % 0.2 % (0.0-0.8); Eosinophils # 0.1 10*3/uL (0.0-0.87); Eosinophils % 0.9 % (0.00-10.9); Hematocrit 26.6 VOL% (42.0-52.0); Hemoglobin 9.3 GM/DL (14.0-18.0); Immature Granulocytes % 0.5 %; Immature Granulocytes Absolute 0.05 #; Lymphocytes # 1.1 10*3/uL (1.4-4.0); Lymphocytes % 11.3 % (21.2-54.2); Mean Corpuscular Volume 83.1 FL (87-102); Monocytes % 5.2 % (1.7-12.7); Neutrophils % 81.9 % (38.7-73.9); Platelet Count 350 T/CUMM (130-400); Red Cell Distribution Width 15.9 % (9.3-17.3); White Blood Count 9.9 T/CUMM (4-12)
[2021-09-04 08:10] LABS: Calcium 6.8 MG/DL (8.5-10.1); Osmolality,Calculated 281.3 MOS/KG (273-304)
[2021-09-04] MEDS: INSULIN REGULAR 100 UNIT/ML SUBCUT SCH ×2 (08:29→12:03)
[2021-09-04] MEDS: DOCUSATE SODIUM 100 MG CAPSULE PO SCH (08:30)
[2021-09-04] MEDS: CHLORHEXIDINE 0.12% ORAL RINSE 60 ML BOTTLE SWISH/SPIT SCH (08:30)
[2021-09-04] MEDS: POLYETHYLENE GLYCOL POWDER 17 GM PACK PO SCH (08:30)
[2021-09-04] MEDS: APIXABAN 5 MG TABLET PO SCH (08:30)
[2021-09-04] MEDS: METOPROLOL TARTRATE 25 MG TABLET PO SCH (08:30)
[2021-09-04] MEDS: DILTIAZEM CD 120 MG CAPSULE PO SCH (08:30)
[2021-09-04] MEDS: AMIODARONE 200 MG TABLET PO SCH (08:30)
[2021-09-04] MEDS: PANTOPRAZOLE 40 MG TABLET PO SCH (08:30)
[2021-09-04] MEDS: FERROUS SULFATE 325 MG TABLET PO SCH (08:30)
[2021-09-04] MEDS: FUROSEMIDE 40 MG TABLET PO SCH (08:30)
[2021-09-04] MEDS: ASPIRIN EC 81 MG TABLET PO SCH (08:30)
[2021-09-04] MEDS: POTASSIUM CHLORIDE 20 MEQ TABLET PO PRN ×2 (08:38→12:31)
[2021-09-04] MEDS ORDERED: POTASSIUM CHLORIDE 20 MEQ TABLET PO ONE (08:57)
[2021-09-04] MEDS ORDERED: MAGNESIUM SULF RIDER 2 GM/50 ML PREMIX IV ONE (08:57)
[2021-09-04 15:50] VITALS: BP 133/71
[2021-09-05] MEDS ORDERED: METOPROLOL TARTRATE 25 MG TABLET PO SCH (09:00)
[2021-09-05] MEDS ORDERED: POTASSIUM CHLORIDE 10 MEQ TABLET PO SCH (09:00)
== END 2021-09-04 15:16 | disposition swing bed (61) | DRG 220 ==
LOC: N.2W 14:42 → N.CVR 08-22 10:35 → N.ICU 08-23 07:22 → N.TELES 08-24 11:41